=== PATIENT | male | born 1965 ===

== ENCOUNTER 2017-07-25 06:15 | Day surgery (SDC) | payer OTHER ==
[~2017-07-25 06:15] MED LIST: ASA325 MG PO; ATACAND4 MG PO; CLONAZEPAM0.5 MG PO; LIPITOR40 MG PO; NORVASC2.5 M1 PO; PLAVIX75 MG PO; TOPROL XL25 M1 PO
[2017-07-25] MEDS ORDERED: PERCOCET 5-3251 EACH PO (13:51)
[2017-07-25] MEDS ORDERED: RECTICARE30 GM TOP (13:51)
== END 2017-07-25 18:15 | disposition home or self-care (01) ==
LOC: CIR.AMB 06:15 → EDBD 14:45 → CIR.AMB 18:15
DX: K60.1 Chronic anal fissure (principal); K64.4 Residual hemorrhoidal skin tags; K64.8 Other hemorrhoids; K64.2 Third degree hemorrhoids